=== PATIENT | male | born 1970 | race Two or more races ===

== ENCOUNTER 2019-11-22 01:47 | Emergency (ER) | payer OTHER ==
[~2019-11-22] VITALS: Ht 188 cm; Wt 122.5 kg
--- NOTE | 2019-11-22 01:56 | NUR ---
PT BIB EMS C/O SYNCOPE WITNESSED BY AND ANOTHER BY THE EMS. PT AAOX4, NAD BS-130. NO MEDICAL COMPLAINTS AT THIS TIME. AWAITING FOR MD SCHAFER.
--- NOTE | 2019-11-22 02:14 | NUR ---
BLOOD COLLECTED AND SENT TO LAB
[2019-11-22 02:18] LABS: BASOPHILS % (AUTO) 0.4 % (0.0-2.0); EOSINOPHILS % (AUTO) 0.7 % (0.0-6.0); HEMATOCRIT 38 % (39-51); HEMOGLOBIN 12.8 g/dL (13.5-17.5); LYMPHOCYTES # (AUTO) 0.8 /CMM (0.8-4.8); MEAN CORPUSCULAR HGB CONC 33 g/dl (31.0-36.0); MEAN CORPUSCULAR VOLUME 84 fL (80-96); MONOCYTES # (AUTO) 0.6 /CMM (0.1-1.30); MONOCYTES % (AUTO) 11.6 % (2.0-12.0); NEUTROPHILS % (AUTO) 72.3 % (43.0-81.0); PLATELET COUNT (AUTO) 175 /CMM (150-450); RED BLOOD CELL COUNT(AUTO) 4.57 MIL/uL (4.5-6.0); WHITE BLOOD COUNT (AUTO) 5.5 K/uL (4.3-11.0)
[2019-11-22] MEDS ORDERED: IV NS 0.9% 1,000 ML BAG IV ONE (02:30)
[2019-11-22 02:33] LABS: ALANINE AMINOTRANSFERASE 19 U/L (12-78); ALBUMIN 3.3 g/dL (3.4-5.0); ALKALINE PHOSPHATASE 67 U/L (46-116); ASPARTATE AMINOTRANSFERASE 17 U/L (15-37); BILIRUBIN,DIRECT 0.2 mg/dL (0.0-0.2); BILIRUBIN,TOTAL 0.5 mg/dL (0.2-1.0); CALCIUM, SERUM 8.1 mg/dL (8.5-10.1); CARBON DIOXIDE 30 mmol/L (21-32); CHLORIDE 98 mmol/L (98-107); CREATININE 1.5 mg/dL (0.6-1.3); GLUCOSE 116 mg/dL (74-106); SODIUM SERUM 136 mmol/L (136-145); TOTAL PROTEIN, SERUM 7.3 g/dL (6.4-8.2); UREA NITROGEN, BLOOD 14 mg/dL (7-18)
[2019-11-22 02:38] LABS: POTASSIUM 2.8 mmol/L (3.5-5.1)
[2019-11-22] MEDS ORDERED: POTASSIUM CHLORIDE 20 MEQ TAB.PRT.SR PO ONE ×4 (03:00→03:05)
--- NOTE | 2019-11-22 04:22 | NUR ---
PT ACCEPTED TO [facility] BY DR VELOZ. # FOR REPORT [phone]. ETA [id number]
--- NOTE | 2019-11-22 04:40 | NUR ---
REPORT GIVEN TO ELZBIETA LANCASTER. [facility]
[2019-11-22 05:23] VITALS: BP 108/65
--- NOTE | 2019-11-22 05:23 | NUR ---
REPORT GIVEN TO EMS, PT STABLE FOR TRANSFER
--- NOTE | 2019-11-22 05:24 | NUR ---
Patient Tranfers to outside Facility. VSS Location:[facility] [place]
== END 2019-11-22 05:24 | disposition short-term general hospital (02) ==
LOC: ER 01:49
DX: R55 Syncope and collapse (principal); R94.31 Abnormal electrocardiogram [ECG] [EKG]; I10 Essential (primary) hypertension
CPT/HCPCS: 36415; 70450; 80048; 80076; 82962; 84484; 85025; 93005; 96360; 99285; J7030